=== PATIENT | male | born 1960 | race Caucasian/White ===

== ENCOUNTER 2017-12-21 16:14 | Emergency (ER) | payer OTHER ==
[~2017-12-21] VITALS: Ht 175.3 cm; Wt 94.8 kg
[2017-12-21 16:24] VITALS: BP_SYST 143
[2017-12-21 16:58] LABS: CLARITY/URINE CLEAR (CLEAR); GLUCOSE,URINE NEGATIVE (NEGATIVE); KETONES,URINE 1+ (NEGATIVE); LEUKOCYTE ESTERASE ,URINE NEGATIVE (NEGATIVE); NITRITE, URINE NEGATIVE (NEGATIVE); PH,URINE 5.5 (5.0-8.0); PROTEIN URINE TRACE (NEGATIVE); UROBILINOGEN,URINE 0.2 (0.2-1.0)
[2017-12-21 17:06] LABS: BLOOD, URINE TRACE (NEGATIVE); COLOR,URINE AMBER (YELLOW)
[2017-12-21 17:07] LABS: BILIRUBIN,URINE NEGATIVE (NEGATIVE)
[2017-12-21 17:08] LABS: BACTERIA,URINE FEW /HPF (None Seen); CALCIUM OXALATE CRYSTALS,UR 30-50 /HPF (None Seen); MUCUS,URINE None Seen /LPF (None Seen); RBC,URINE NONE SEEN /HPF (0-3); WBC,URINE 0-3 /HPF (0-3)
[2017-12-21] MEDS ORDERED: traMADol HCL HCL 50 MG TABLET (ULTRAM) PO ONE (17:30)
[2017-12-21 17:51] VITALS: BP_SYST 143
== END 2017-12-21 17:51 | disposition home or self-care (01) ==
LOC: SED 16:14
DX: S82.832A Other fracture of upper and lower end of left fibula, initial encounter for closed fracture (principal); F17.210 Nicotine dependence, cigarettes, uncomplicated; W11.XXXA Fall on and from ladder, initial encounter; Y93.89 Activity, other specified; Y92.096 Garden or yard of other non-institutional residence as the place of occurrence of the external cause; Y99.8 Other external cause status
CPT/HCPCS: 81000-TC; 99285